=== PATIENT | female | born 1930 | race Caucasian/White ===

== ENCOUNTER 2017-07-18 10:48 | Emergency (ER) | payer OTHER ==
[2017-07-18 12:06] VITALS: BP 214/74
--- NOTE | 2017-07-18 12:39 | UC ---
Abdominal Pain Female HPI - HPI Summary HPI Summary: Two weeks of malaise and urinary hesitancy. She has been eating and drinking well but still makes small quantities of urine. She vomited one time a few weeks ago. She denies diarrhea. She also has RLQ pain radiating to the right flank. No hematuria. No prior kidney stone. NO fever, cough, uri symptoms. - History of Current Complaint Chief Complaint: UCGU Stated Complaint: UTI Time Seen by Provider: 07/18/17 11:58 Hx Obtained From: Patient, Family/Banker Mason Onset/Duration: Gradual Onset, Lasting Weeks Timing: Constant Severity Initially: Mild Severity Currently: Moderate Location: Discrete At: RLQ Radiates: Yes Radiates to: Flank, Inguinal Character: Aching Aggravating Factor(s): Nothing Alleviating Factor(s): Nothing Associated Signs and Symptoms: Positive: Chest Pain, Urinary Symptoms. Negative : Diaphoresis, Fever, Cough, Constipation, Blood in Stool, Nausea, Vomiting, Diarrhea Allergies/Adverse Reactions: Allergies Allergy/AdvReac Type Severity Reaction Status Date / Time Penicillins Allergy Intermediate Rash Verified 07/18/17 12:05 Home Medications: Home Medications Acetaminophen [Acetaminophen Extra Stren] 1,000 mg PO PRN 07/18/17 [History] Hydrochlorothiazide TAB* [Hydrodiuril TAB*] 25 mg PO DAILY 07/18/17 [History Confirmed 07/18/17] Losartan Potassium 100 mg PO 07/18/17 [History Confirmed 07/18/17] Metoprolol Succinate [Metoprolol Succinate ER] 25 mg PO 07/18/17 [History] PMH/Surg Hx/FS Hx/Imm Hx Previously Healthy: No - HTN. - Surgical History Surgical History: Yes Surgery Procedure, Year, and Place: appy, tonsils, Bi-lat hip replacements - Family History Known Family History: Positive: Other - No related family history as far as her abd pain. - Social History Alcohol Use: None Substance Use Type: None Smoking Status (MU): Never Smoked Tobacco Review of Systems Gastrointestinal: Abdominal Pain Genitourinary: Other - hesitency. All Other Systems Reviewed And Are Negative: Yes Physical Exam Triage Information Reviewed: Yes Appearance: Well-Appearing, No Pain Distress, Well-Nourished Vital Signs: Initial Vital Signs Temp 98.2 F 07/18/17 11:58 Pulse 57 07/18/17 11:58 Resp 16 07/18/17 11:58 BP 214/74 07/18/17 11:58 Pulse Ox 100 07/18/17 11:58 Vital Signs Reviewed: Yes ENT: Positive: Normal ENT inspection Neck exam: Normal Neck: Positive: Supple, Nontender, No Lymphadenopathy Respiratory: Positive: Lungs clear, Normal breath sounds, No respiratory distress, No accessory muscle use. Negative: Respiratory distress, Decreased breath sounds, Accessory muscle use, Crackles, Rhonchi, Stridor, Wheezing Cardiovascular Exam: Other - No obvious right inguinal pulsatile mass. Cardiovascular: Positive: No Murmur Abdomen Description: Positive: Other: - tenderness RLQ and LUQ.. Negative: CVA Tenderness (R), CVA Tenderness (L), Distended, Guarding, Peritoneal Signs, Pulsatile Mass Musculoskeletal: Positive: ROM Intact, No Edema Neurological: Positive: Alert, Muscle Tone Normal. Negative: Fatigued Psychological: Positive: Normal Response To Family Skin: Negative: rashes Abd Pain Female Course/Dx - Course Course Of Treatment: Differential is quite long. We discussed possibility of aneurysm, stone, infection, urinary obstruction, kidney failure. I have discussed my concerns with Pricila Sal at [place] [facility]. She will go by car with daughter. They did not want to go by ambulance. - Differential Dx/Diagnosis Provider Diagnoses: abd pain. urinary hesitency. decreased urinary output. Discharge - Discharge Plan Condition: Guarded Disposition: TRANS HIGHER LVL OF CARE FAC Referrals: Kin Stoddard MD [Primary Care Provider] - Additional Instructions: Please drive directly to [place] [facility].
== END 2017-07-18 12:39 | disposition short-term general hospital (02) ==
LOC: UCCORT 10:48
DX: R10.31 Right lower quadrant pain (principal); R10.12 Left upper quadrant pain; R39.11 Hesitancy of micturition; R34 Anuria and oliguria
CPT/HCPCS: 81003; 99202; G0463